=== PATIENT | female | born 1940 ===

== ENCOUNTER 2024-11-15 03:16 | Inpatient (IN) | payer OTHER, SELFPAY ==
[2024-11-14 21:27] VITALS: BP 108/72
[2024-11-14 21:59] LABS: % Basophils 0.2 % (0-2); % Eosinophils 0.4 % (0-6); % Immature Granulocytes 0.4 % (0-0.5); % Lymphocytes 9.5 % (20.5-51.1); % Monocytes 9.8 % (1.7-9.3); % Neutrophils 79.7 % (42.2-75.2); Absolute Lymphocytes 0.9 10^3/uL (1.2-3.4); Absolute Monocytes 0.9 10^3/uL (0.1-0.6); Absolute Neutrophils 7.1 10^3/uL (1.4-6.5); Hematocrit 36.8 % (37.0-47.0); Hemoglobin 12.1 g/dL (12.0-16.0); Mean Corp Hgb Conc. 32.9 g/dL (33.0-37.0); Mean Corpuscular Hgb 28.9 pg (27.0-31.0); Mean Corpuscular Volume 87.8 fL (81.0-99.0); Mean Platelet Volume 9.8 fL (7.4-10.4); Nucleated Red Blood Cells % 0 %; Platelet Count 192 10^3/uL (130-400); Red Blood Cell Count 4.19 10^6/uL (4.20-5.40); Red Cell Dist. Width 12.7 % (11.5-14.5)
[2024-11-14 22:18] LABS: ALT (SGPT) 13 U/L (0-35); AST (SGOT) 48 U/L (14-36); Albumin 4.2 g/dl (3.5-5.0); Alkaline Phosphatase 268 U/L (38-126); Blood Urea Nitrogen 25 mg/dl (7-17); Calcium 9.5 mg/dl (8.4-10.2); Carbon Dioxide 24 mmol/L (22-30); Chloride 94 mmol/L (98-107); Glucose 110 mg/dl (70-99); Potassium 4.4 mmol/L (3.5-5.1); Sodium 128 mmol/L (135-145); Total Bilirubin 1.6 mg/dl (0.2-1.3); eGFR 50.17
--- NOTE | 2024-11-14 23:06 | ED.GENMED ---
History of Present Illness
General
Chief Complaint: Urinary Symptoms
Source: patient and family
Exam Limitations: none
Time Seen by Provider: 11/14/24 22:45
Nursing documentation reviewed up to this point in time: agreed with
History of Present Illness
History of Present Illness:
84-year-old female presents emergency department due to confusion and hallucinations. Daughter states she was talking and not making sense. She has a history of low sodium. She also is a history of urinary tract infections.
Past History
Past History
ED Past Medical History: Other (Melanoma, chronic arthritis)
ED Past Surgical History: Cholecystectomy and Other (Hernia repair, toe amputation)
Social History
Tobacco: Non-smoker
Alcohol: None
Drug: None
Review of Systems
Review of Systems
Allergies reviewed?: Yes
All Other Systems: Not applicable
Constitutional: Reports no symptoms
EENT: Reports no symptoms
Respiratory: Reports no symptoms
Cardiac: Reports no symptoms
ABD/GI: Reports no symptoms
: Reports no symptoms
Musculoskeletal: Reports no symptoms
Skin: Reports no symptoms
Neurological: Reports other (Confusion, hallucinations)
Endocrine: Reports no symptoms
Hematologic/Lymphatic: Reports no symptoms
Psychiatric: Reports no symptoms
Phy Exam
Physical Exam
Physical Exam:
Physical Exam
General: Afebrile
Neck: supple. no meningeal signs. normal posterior pharynx
Heart: s1/s2 regular rate and rhythm, no murmur. equal radial
pulses.
HEENT: Pupils equal round reactive to light, EOMI
Lungs: no acute respiratory distress. clear bilaterally
Abdomen: normal bowel sounds. not tender. no CVAT, palpable mass left groin
Neuro: alert and oriented. no focal neurological deficits cranial nerves II through XII intact
Skin: no rash, left posterior skull mass
Psychiatric: well kept. interactive and cooperative
Extremities: no edema. no calf tenderness. negative homans. good distal pulses
Course
Orders/Labs/Results
Orders:
Orders
11/14/24 21:41
Complete Blood Count/With Diff Urgent
Comprehensive Metabolic Panel Urgent
11/14/24 22:57
Straight cath- Treatment ONCE
11/14/24 23:19
Osmolality, Random Urine Urgent
Date Specimen was Collected: 11/14/24
Time Specimen was Collected: 23:01
Urine Culture Reflexed from UA [Urinalysis Reflex To Culture] Urgent
Date Specimen was Collected: 11/14/24
Time Specimen was Collected: 21:30
Urine Microscopic Reflex Cult Urgent
Urine Sodium Urgent
Date Specimen was Collected: 11/14/24
Time Specimen was Collected: 23:01
11/14/24 23:30
Oxycodone [Roxicodone] 5 mg PO NOW STA
11/14/24 23:51
Electrocardiogram (*1) Urgent
EKG- Treatment ONCE
11/15/24 00:00
CT Abd/pelvis W Iv Cont Urgent
Reason For Exam: left groin swelling
CT Head W/o Iv Contrast Urgent
Reason For Exam: hallucinations, confusion
Abnormal Lab Results
11/14/24 11/14/24
21:41 23:19
RBC 4.19 L 10^6/uL
(4.20-5.40)
Hct 36.8 L %
(37.0-47.0)
MCHC 32.9 L g/dL
(33.0-37.0)
Absolute Neuts (auto) 7.1 H 10^3/uL
(1.4-6.5)
Absolute Lymphs (auto) 0.9 L 10^3/uL
(1.2-3.4)
Absolute Monos (auto) 0.9 H 10^3/uL
(0.1-0.6)
Neutrophils % 79.7 H %
(42.2-75.2)
Lymphocytes % 9.5 L %
(20.5-51.1)
Monocytes % 9.8 H %
(1.7-9.3)
Sodium 128 L mmol/L
(135-145)
Chloride 94 L mmol/L
(98-107)
BUN 25 H mg/dl
(7-17)
Creatinine 1.1 H mg/dL
(0.6-1.0)
Glucose 110 H mg/dl
(70-99)
Total Bilirubin 1.6 H mg/dl
(0.2-1.3)
AST 48 H U/L
(14-36)
Alkaline Phosphatase 268 H U/L
(38-126)
Ur Occult Blood Reflex 2+ A
(Negative)
Urine RBC 3-6 A /HPF
(0-2)
Urine Albumin (Reflex) 3+ A
(Neg - Trace)
11/14/24 21:41
11/14/24 21:41
Vital Signs
Initial and Last Documented VS:
Initial Vital Signs
Temp Pulse Resp BP Pulse Ox
98.4 F 68 20 108/72 94
11/14/24 21:27 11/14/24 21:27 11/14/24 21:27 11/14/24 21:27 11/14/24 21:27
Last Documented Vital Signs
Temp Pulse Resp BP Pulse Ox
98.8 F 68 21 144/78 94
11/14/24 23:46 11/14/24 23:46 11/14/24 23:46 11/14/24 23:46 11/14/24 23:46
MDM/Problems Addressed
Differential Diagnosis Includes:
UTI, melanoma metastasis
MDM/Problems Addressed:
84-year-old female with hyponatremia, metastatic melanoma. Pleural effusion.
Chronic conditions affecting care: Cancer (Melanoma)
Acute Exacerbation and/or Progression of Chronic Illness: Cancer (Melanoma)
*Radiology
Radiology exam reviewed: radiology read reviewed (CT head shows left metastatic mass eating through the skull, CT abdomen pelvis shows metastasis to liver, pleural effusions)
*Pulse Oximetry
Patient hypoxic: no
*Reducing Machine Operator Interpretation
Rate: normal
Interpretation: normal
Heart Rate: 70
Rhythm: sinus
*Critical Care Note
Total Time (30-74mins, 75-104mins- exclusive of procedures): Not Applicable
Data Reviewed
Review of Other/Old Records Reveals: Labs
Source: records (Prior sodium 132 on 08/17/2021)
Patient Management
Social determinants of health affecting care: Living situation and Strong social support
Discussion with other providers: Hospitalist
Escalation/DeEscalation of care consider admission/obs:
Admit indicated
ED Attending Note
-
Portions of this chart may have been created with voice recognition software.� Occasional wrong word or��sound alike� substitutions may have occurred due to the inherent limitations of voice recognition software.
Discharge Plan
Departure
Patient Disposition: Admit
Date of Disposition: 11/15/24
Time of Disposition: 01:42
Admit to: Telemetry
Presentation/result/management discussed w/ accepting MD/DO: Hospitalist
Patient with high blood pressure during this ER visit?: Yes
Condition: Fair
Discharge Problem:
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
Prescriptions:
No Action
methocarbamol 500 mg Tablet
500 mg PO TID PRN (Reason: muscle pains)
gabapentin 600 mg Tablet
600 mg PO TID
atenolol 100 mg Tablet
100 mg PO DAILY
ondansetron HCl [Zofran] 8 mg Tablet
8 mg PO Q8H PRN (Reason: nausea)
omeprazole 40 mg Capsule,Delayed Release(Dr/Ec)
40 mg PO DAILY
amlodipine 10 mg Tablet
10 mg PO DAILY
timolol 0.25 % Drops
1 drp OPHTHALMIC (EYE) BID
Rx Instructions:
Both eyes
fentanyl 25 mcg/hr Patch 72 Hour
25 mcg topical Q3D
oxycodone 5 mg Tablet
5 mg PO Q6H PRN (Reason: pain)
prednisone 10 mg Tablet
10 mg PO DAILY PRN (Reason: breakthrough pain for gout)
ergocalciferol (vitamin D2) 1,000 unit Capsule
50,000 unit PO WEEKLY
Referrals:
PAULETTE ALMANZAR [Other]
Interventions
Interventions:
*Risk Screen - Suicide Last Done: 11/14/24 23:20
*General Assessment Last Done: 11/14/24 21:27
*Neglect/Abuse Screening Last Done: 11/14/24 23:20
*ED- Fall Risk Assessment Last Done: 11/14/24 23:20
*ED COVID-19 Vaccine History Last Done: 11/14/24 23:20
ED-Female Genitourinary Assessment Last Done: 11/14/24 23:21
Discharge Date and Time
Print Language: PERSIAN
[2024-11-14 23:21] VITALS: BMI 34.5
[2024-11-14] MEDS: ROXICODONE 5 MG PO (23:33)
[2024-11-14 23:46] VITALS: BP 144/78
[2024-11-14 23:50] LABS: Urine Albumin 3+ (Neg - Trace); Urine Bilirubin Negative (Negative); Urine Character Clear (Clear); Urine Color Yellow; Urine Glucose Negative (Negative); Urine Ketone Negative (Negative); Urine Leukocyte Negative (Negative); Urine Nitrite Negative (Negative); Urine Occult Blood 2+ (Negative); Urine Specific Gravity 1.015 (<1.030); Urine Urobilinogen 1+ (Neg - 1+)
[2024-11-15] VITALS (8 sets, daily range): BP systolic 105–161; BP diastolic 51–66; BMI 33.1
[2024-11-15 00:03] LABS: Urine White Cell 0-2 /HPF (0-5)
[2024-11-15 00:12] LABS: Urine Sodium 38 mmol/L (30-90)
[2024-11-15 00:42] LABS: Osmolality Urine 467 mOsm/kg (300-900)
--- NOTE | 2024-11-15 02:40 | HPS.HSE ---
Family Physician
-
Family Physician: PAULETTE ALMANZAR
Chief Complaint
-
Delirium
History of Present Illness
This is a 84-year-old female with past medical history of metastatic melanoma status post resection 3 years ago, hypertension, gout, GERD who presents from home for episode of confusion.
Daughter brought patient because she stated that for about 1 day the patient has been more confused. Patient herself noted that she was 'acting goofy'. Daughter brought her in for concern of possible UTI. Patient himself denies urinary tract
symptoms including dysuria, frequency urgency or incontinence. She reports that in the past she has been diagnosed with hyponatremia in the setting of confusions and hallucinations and nighttime had a low sodium of 122. She denies any urinary
changes.
Patient denies of any fevers or chills. She denies any abdominal pain nausea or vomiting. She reported that she had a bump in her head for some time now on the left parietal side but does not disclose this to her daughter. She also reports some
mild increasing arthritis pain.
By the time I saw the patient in the emergency department she was alert and oriented x 3 answering current questions appropriately.
In the emergency department she was afebrile, blood pressure was 144/78 with a pulse of 68 satting 94% on room air. UA was negative. CBC was unremarkable. Electrolytes notable for a sodium of 128 but otherwise unremarkable. BUN/creatinine with
normal glucose normal. A CT of the head shows no acute intracranial hemorrhage herniation or hydrocephalus. 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 Skull metastasis erosion through the full-thickness of the inner and outer table of the
skull with mild mass effect on the underlying parietal lobe and posterior frontal lobe.
CT abdomen pelvis with numerous metastasis in the liver with largest measuring 7 cm in the left lobe, 3 cm nodule in the left adrenal gland, 6.4 cm left inguinal mass consistent with mets additional mets noted in the left pubic ramus and head with
multiple sarmad metastases along the left iliac chain.
Medical History
Past Medical History
Past Medical History: Reports Cancer (melanoma), GERD and HTN
Past Surgical History: Reports Appendectomy and Cholecystectomy
Social History
Tobacco: Former Smoker
Alcohol: None
Drug: None
Personal: Single
Living: With Family
Employment: Not Employed
Family History
Family History: Not pertinent
Allergies / Home Medications
Allergies reflects when Allergies were last updated in [facility].
Home Medications with original date entered in [facility]
Allergy/Medication List:
Allergies
Allergy/AdvReac Type Severity Reaction Status Date / Time
No Known Allergies Allergy Verified 11/14/24 23:21
Home Medications
amlodipine 10 mg tablet 10 mg PO DAILY 11/14/24
atenolol 100 mg tablet 100 mg PO DAILY 11/14/24
ergocalciferol (vitamin D2) 1,000 unit capsule 50,000 unit PO WEEKLY 11/14/24
fentanyl 25 mcg/hr transdermal patch 25 mcg topical Q3D 11/14/24
gabapentin 600 mg tablet 600 mg PO TID 11/14/24
methocarbamol 500 mg tablet 500 mg PO TID PRN muscle pains 11/14/24
omeprazole 40 mg capsule,delayed release 40 mg PO DAILY 11/14/24
ondansetron HCl 8 mg tablet 8 mg PO Q8H PRN nausea 11/14/24
oxycodone 5 mg tablet 5 mg PO Q6H PRN pain 11/14/24
prednisone 10 mg tablet 10 mg PO DAILY PRN breakthrough pain for gout 11/14/24
timolol 0.25 % eye drops 1 drp ophthalmic (eye) BID 11/14/24
Review of Systems
-
History Source: Patient and Family
Constitutional: Reports No Symptoms
EENT: Reports No Symptoms
Respiratory: Reports No Symptoms
Cardiac: Reports No Symptoms
Abdomen/GI: Reports No Symptoms
: Reports No Symptoms
Musculoskeletal: Reports No Symptoms
Skin: Reports No Symptoms
Neurological: Reports No Symptoms
Endocrine: Reports No Symptoms
Hematologic/Lymphatic: Reports No Symptoms
Psych: Reports No Symptoms
Physical Exam
Vital Signs
Vital Signs
Temp Pulse Resp BP Pulse Ox
98.8 F 73 20 144/78 95
11/14/24 23:46 11/15/24 02:15 11/15/24 02:15 11/14/24 23:46 11/15/24 00:05
Physical Exam
General: Well Developed, Well Nourished, No Apparent Distress, Comfortable and Conversant
HEENT: Anicteric, Moist mucous membranes, PERRLA and Other (4 cm nodular mass on the left parietal side of the head)
Respiratory: Clear
Cardiac: S1/S2 and Regular Rhythm
Breast: Deferred by me
GI: Soft, Non Tender, Non Distended and Normal Bowel Sounds
Rectal: Deferred by Provider
Genito-urinary: Clear Urine
Musculoskeletal: No Clubbing, No Cyanosis and No Edema
Skin: Warm
Neuro: AO x 3 and Nonfocal/grossly intact
Hematologic/Lymphatic: No Lymphadenopathy
Psych: Calm
Laboratory Results
-
11/14/24 21:41
11/14/24 21:41
Laboratory Results
Total Bilirubin 1.6 mg/dl (0.2-1.3) H 11/14/24 21:41
AST 48 U/L (14-36) H 11/14/24 21:41
ALT 13 U/L (0-35) 11/14/24 21:41
Alkaline Phosphatase 268 U/L (38-126) H 11/14/24 21:41
Data Reviewed
-
CT Scan: Report Reviewed by me
Lab Data: Labs Reviewed by me
Old Records: Reviewed
Impression/Plan
-
IMPRESSION:
This is a 84-year-old with history of metastatic melanoma. She was diagnosed in 2021. 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 She was treated with adjuvant immunotherapy. After 2 sessions of the immunotherapy she was not
tolerating it and she decided to discontinue. She did not continue to follow-up with routine scans since she was not going to entertain taking chemotherapy or immunotherapy. She started noticing a bump on the left side of her head several weeks
ago. She thought it was a cyst but she was also was concerned that it could be metastatic disease. Today she was going to the emergency department for episode of confusion which appears to have resolved. Patient is currently alert oriented and in
no acute distress. This is consistent with acute delirium. Imaging shows widely metastatic disease with a large brain met as well as multiple mets in the liver and the pelvic bones. She has mild abnormalities in her LFTs with total bilirubin of
1.6 alk phos of 268. She has no pruritus. No signs of acute infection.
PLAN:
1. Delirium - confusion resolved. No acute infection. Na 128 an dunlikely the etiology. Possibly related to skull mets with erosion through the full-thickness of the inner and outer table of the skull with mild mass effect on the underlying
parietal lobe and posterior frontal lobe.
- admit to med/surg
- oncology consultation
- mri brain
- dexamethasone 4mg daily to start
2. 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 Urine Osm 460. She is euvolemic.
- fluid restriction to 50 oz daily
- consider reducing gabapentin but patient likely needs for pain
3. Metastatic melanoma - Patient suspected this eventuality from the nodule on head. Mets to skull/brain, liver and hip bones. Willing to entertain palliative/therapeutic options
- dexamethasone as above
- metastatic liver with mild cholestatic pattern. She reports some nausea and some reduced po. Symptomatic treatment for now. Do ductal obstruction noted
- trend lfts
- consider GI consult
DVT PPX - lovenox sq
code status - DNR
[2024-11-15] MEDS: ROXICODONE 5 MG PO ×2 (05:49→20:59)
--- NOTE | 2024-11-15 07:31 | PTCARENOTE ---
Pt admitted from ED with daughter at bedside. AAOx3. Pt afebrile. VSS. Pure wick removed upon arrival to unit. Pt oriented to room. Call newman within reach and bed in lowest position. Bed alarm in place.
[2024-11-15 07:53] LABS: Hematocrit 32.4 % (37.0-47.0); Hemoglobin 10.8 g/dL (12.0-16.0); Mean Corp Hgb Conc. 33.3 g/dL (33.0-37.0); Mean Corpuscular Hgb 29.3 pg (27.0-31.0); Mean Platelet Volume 9.8 fL (7.4-10.4); Platelet Count 143 10^3/uL (130-400); Red Blood Cell Count 3.68 10^6/uL (4.20-5.40); Red Cell Dist. Width 12.6 % (11.5-14.5); White Blood Cell Count 7.5 10^3/uL (4.8-10.8)
[2024-11-15 08:22] LABS: ALT (SGPT) 10 U/L (0-35); AST (SGOT) 38 U/L (14-36); Albumin 3.1 g/dl (3.5-5.0); Alkaline Phosphatase 223 U/L (38-126); Blood Urea Nitrogen 21 mg/dl (7-17); Calcium 9.1 mg/dl (8.4-10.2); Carbon Dioxide 27 mmol/L (22-30); Chloride 96 mmol/L (98-107); Direct Bilirubin 0.7 mg/dl (0.0-0.4); Estimated Creatinine Clearance 48 ml/min; Glucose 95 mg/dl (70-99); Potassium 3.9 mmol/L (3.5-5.1); Sodium 130 mmol/L (135-145); Total Bilirubin 1.5 mg/dl (0.2-1.3); Total Protein 5.9 g/dl (6.3-8.2); eGFR 56.25
[2024-11-15 08:51] LABS: TSH 0.57 uIU/ml (0.47-4.68)
[2024-11-15 09:10] LABS: Vitamin B12 280 pg/ml (239-931)
[2024-11-15] MEDS: NEURONTIN 300 MG PO ×3 (09:17→20:59)
[2024-11-15] MEDS: DECADRON 4 MG PO (09:17)
[2024-11-15] MEDS: NORVASC 10 MG PO (09:18)
[2024-11-15] MEDS: TENORMIN 100 MG PO (09:18)
[2024-11-15] MEDS: PROTONIX 40 MG PO (09:18)
[2024-11-15] MEDS: TIMOPTIC 0.25% OPHTHALMIC SOLUTION 1 DROP BOTH EYES ×2 (09:25→20:58)
--- NOTE | 2024-11-15 10:35 | W.CON.NEPH ---
Consultation
-
Date/Time Consultation Requested: 11/15/2024 10 AM
Date/Time Consultation Performed: 11/15/2024 10 AM
Requesting Provider: Dr. Lin
Performing Provider: Dr. Castillo
Reason for Consultation: Hyponatremia
Medical History
-
Chief Complaint: Confusion
History of Present Illness:
This is a 84-year-old female with metastatic melanoma status post resection 3 years ago, hypertension, gout, GERD who presents from home for episode of confusion.
Daughter brought patient because she stated that for about 1 day the patient has been more confused. Patient recalls being confused. Daughter brought her in for concern of possible UTI. Recently the patient did have a similar episode and was
treated for a urinary tract infection which seemed to have helped. However the symptoms did return and she was given another course of antibiotics without urine testing.
Patient denies of any fevers or chills. She denies any abdominal pain nausea or vomiting. She reported that she had a bump in her head for some time now on the left parietal side but does not disclose this to her daughter. She also reports some
mild increasing arthritis pain.
Sodium level in the emergency room was noted to be low at 128
Patient reports drinking somewhere between 64 and 72 ounces of fluid per day. Recently she has had more nausea and has been eating somewhat less.
Past Medical History
Metastatic melanoma
Hypertension
Reflux
Appendectomy
Cholecystectomy
Social History
Tobacco: Former Smoker
Alcohol: None
Family History
Family History: Not Pertinent
Allergies / Home Medications
Allergy/AdvReac Type Severity Reaction Status Date / Time
No Known Allergies Allergy Verified 11/14/24 23:21
�Medication �Instructions �Recorded �Confirmed �Type
amlodipine 10 mg tablet 10 mg PO DAILY 11/14/24 11/14/24 History
atenolol 100 mg tablet 100 mg PO DAILY 11/14/24 11/14/24 History
ergocalciferol (vitamin D2) 1,000 50,000 unit PO WEEKLY 11/14/24 11/14/24 History
unit capsule
fentanyl 25 mcg/hr transdermal 25 mcg topical Q3D 11/14/24 11/15/24 History
patch
gabapentin 600 mg tablet 600 mg PO TID 11/14/24 11/14/24 History
methocarbamol 500 mg tablet 500 mg PO TID PRN muscle pains 11/14/24 11/14/24 History
omeprazole 40 mg capsule,delayed 40 mg PO DAILY 11/14/24 11/14/24 History
release
ondansetron HCl 8 mg tablet 8 mg PO Q8H PRN nausea 11/14/24 11/14/24 History
oxycodone 5 mg tablet 5 mg PO Q6H PRN pain 11/14/24 11/14/24 History
prednisone 10 mg tablet 10 mg PO DAILY PRN breakthrough 11/14/24 11/14/24 History
pain for gout
timolol 0.25 % eye drops 1 drp ophthalmic (eye) BID 11/14/24 11/14/24 History
Review of Systems
-
No chest pain or shortness of breath
Does not feel confused
Some difficulty with urination in bed when she is not on the commode
All other systems: Negative unless noted
Physical Exam
Vital Signs
Vital Signs
Temp Pulse Resp BP Pulse Ox
99 F 71 22 126/54 93
11/15/24 07:50 11/15/24 07:50 11/15/24 07:50 11/15/24 07:50 11/15/24 07:50
Lab Results
WBC 7.5 10^3/uL (4.8-10.8) 11/15/24 07:13
RBC 3.68 10^6/uL (4.20-5.40) L 11/15/24 07:13
Hgb 10.8 g/dL (12.0-16.0) L 11/15/24 07:13
Hct 32.4 % (37.0-47.0) L 11/15/24 07:13
Plt Count 143 10^3/uL (130-400) D 11/15/24 07:13
Sodium 130 mmol/L (135-145) L 11/15/24 07:13
Potassium 3.9 mmol/L (3.5-5.1) 11/15/24 07:13
Chloride 96 mmol/L (98-107) L 11/15/24 07:13
Carbon Dioxide 27 mmol/L (22-30) 11/15/24 07:13
BUN 21 mg/dl (7-17) H 11/15/24 07:13
Creatinine 1.0 mg/dL (0.6-1.0) 11/15/24 07:13
eGFR 56.25 11/15/24 07:13
Glucose 95 mg/dl (70-99) 11/15/24 07:13
Calcium 9.1 mg/dl (8.4-10.2) 11/15/24 07:13
Albumin 3.1 g/dl (3.5-5.0) L 11/15/24 07:13
Laboratory Tests
11/14/24 11/15/24
23:19 07:13
AST 38 H
Ur Occult Blood Reflex 2+ A
Urine Osmolality 467
Urine Sodium 38
Urine Albumin (Reflex) 3+ A
CT head 11/15/2024
IMPRESSION:
Left parietal calvarial mass/metastasis, as described.
No acute intracranial abnormality noted.
CT abdomen pelvis 11/15/2024
IMPRESSION:
Metastatic disease involving the liver, adrenal glands, left pelvic and inguinal lymph nodes, retroperitoneal lymph nodes, and osseous metastatic lesions.
Small right pleural effusion.
Physical Exam
Patient is awake alert oriented and in no distress. Mood and affect were pleasant, insight and judgment were good. Pupils are equal round and reactive to light, extraocular movements are intact, sclera were anicteric. Hearing was normal, ears and
nose are intact. Oropharynx was clear. Neck was supple with trachea midline and no thyromegaly. Heart was regular rate and rhythm without rubs. Lower extremities with 1+ edema. Lungs were clear to auscultation bilaterally and with normal
excursion. Abdomen was soft, nontender, with normal active bowel sounds, and no hepatosplenomegaly. Skin was without rash and with normal turgor.
Data Reviewed
-
CT Scan: Report Reviewed by me
Medical Tests (Nuc Med, Echo etc): Image Personally Visualized and interpreted (EKG 11/14/2024 by my reading shows normal sinus rhythm)
Labs: Labs Reviewed by me
Old Records: Reviewed
Assessment/Plan
-
Assessment
Metastatic melanoma
Mental status change
Hyponatremia
Reflux
Hypertension
Plan
She has excess ADH state, likely on the basis of nausea with metastatic melanoma
Tolvaptan 7.5 mg a day
Fluid restriction 40 ounces per day
Follow BMP
Discussed with patient and daughter
She may benefit from low-dose Lasix with or without salt as an outpatient.
[2024-11-15] MEDS: SAMSCA 7.5 MG PO (11:26)
--- NOTE | 2024-11-15 11:53 | CON.ONC ---
Impression
Impression
h/o node positive left great toe melanoma, ~2022, s/p amputation, left groin node sampling, and a couple doses of adjuvant Keytruda, which was tolerated poorly
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
Plan
Plan
We discussed goals of care - 'I just want to be comfortable'
She's reluctant to consider systemic therapy w/ immunotherapy due to prior side effects of Keytruda
Will consult hospice
Could consider cancelling brain MRI
Would stop Dexamethasone
I also provided my office contact information in case she changes her mind and wants to reconsider treatment options
Will sign off.
Patient History
History of Present Illness
This is an 84yo F w/ h/o right great toe melanoma, s/p amputation (Dr. Desouza, [facility]) in 2022, with groin LN sampling ('a little bit postiive' per family), and a couple doses of adjuvant Keytruda (Dr. Moulton, [facility]), which was poorly tolerated
(nausea, joint pain). She didn't f/u for routine surveillance at [facility] because she didn't want any further treatment.
She was brought to ER yesterday by her daughter with mild confusion, which she had in the past in the setting of UTI and low sodium.
Labs at admission showed Na+ of 128. UA without signs of UTI.
Exam noted for left groin mass and left skull mass, imaging revealed metastatic disease to liver, adrenals, bones, LN of left groin and pelvis.
Past-Medical/Surgical History
Past Medical History
Past Medical History: Reports Cancer (melanoma), GERD and HTN
Past Surgical History: Reports Appendectomy and Cholecystectomy
Social History
Tobacco: Former Smoker
Alcohol: None
Drug: None
Personal: Single
Living: With Family
Employment: Not Employed
Family History
Family History: Not pertinent
Patient Medication
�Medication �Instructions �Recorded �Confirmed �Last Taken �Type
amlodipine 10 mg tablet 10 mg PO DAILY 11/14/24 11/14/24 11/14/24 History
atenolol 100 mg tablet 100 mg PO DAILY 11/14/24 11/14/24 11/14/24 History
ergocalciferol (vitamin D2) 1,000 50,000 unit PO WEEKLY 11/14/24 11/14/24 Unknown History
unit capsule
fentanyl 25 mcg/hr transdermal 25 mcg topical Q3D 11/14/24 11/15/24 Unknown History
patch
gabapentin 600 mg tablet 600 mg PO TID 11/14/24 11/14/24 11/14/24 History
methocarbamol 500 mg tablet 500 mg PO TID PRN muscle pains 11/14/24 11/14/24 Unknown History
omeprazole 40 mg capsule,delayed 40 mg PO DAILY 11/14/24 11/14/24 11/14/24 History
release
ondansetron HCl 8 mg tablet 8 mg PO Q8H PRN nausea 11/14/24 11/14/24 Unknown History
oxycodone 5 mg tablet 5 mg PO Q6H PRN pain 11/14/24 11/14/24 11/14/24 History
prednisone 10 mg tablet 10 mg PO DAILY PRN breakthrough 11/14/24 11/14/24 Unknown History
pain for gout
timolol 0.25 % eye drops 1 drp ophthalmic (eye) BID 11/14/24 11/14/24 11/14/24 History
Active Medications
Generic Name Dose Route Start Last Admin
Trade Name Freq PRN Reason Stop Dose Admin
Acetaminophen 650 mg 11/15/24 05:19
Acetaminophen 325 Mg Tablet PO 12/13/24 05:18
Q4HPRN PRN
mild pain/BRICE/temp> 100.4F
Amlodipine Besylate 10 mg 11/15/24 08:00 11/15/24 09:18
Amlodipine 10 Mg Tablet PO 12/13/24 07:59 10 mg
DAILY ROSA Administration
Atenolol 100 mg 11/15/24 08:00 11/15/24 09:18
Atenolol 50 Mg Tablet PO 12/13/24 07:59 100 mg
DAILY ROSA Administration
Bisacodyl 10 mg 11/15/24 05:19
Bisacodyl 10 Mg Rectal Suppository RECTAL 12/13/24 05:18
[id number] PRN
constipation
Dexamethasone 4 mg 11/15/24 08:00 11/15/24 09:17
Dexamethasone 4 Mg Tablet PO 12/13/24 07:59 4 mg
DAILY ROSA Administration
Enoxaparin Sodium 40 mg 11/15/24 18:00
Enoxaparin Sodium 40 Mg/0.4 Ml Syringe SC 12/13/24 17:59
QPM ROSA
Gabapentin 300 mg 11/15/24 08:00 11/15/24 09:17
Gabapentin 300 Mg Capsule PO 12/13/24 07:59 300 mg
TID ROSA Administration
Hydromorphone HCl 0.5 mg 11/15/24 05:19
Hydromorphone 0.5 Mg/0.5 Ml Syringe IV 11/29/24 05:18
Q4HPRN PRN
severe pain
Ondansetron HCl 4 mg 11/15/24 05:19
Ondansetron 4 Mg/2 Ml Vial IV 12/13/24 05:18
Q6HPRN PRN
nausea and vomiting
Oxycodone HCl 5 mg 11/15/24 05:19 11/15/24 05:49
Oxycodone 5 Mg Regular Release Tablet PO 11/29/24 05:18 5 mg
Q4HPRN PRN Administration
moderate pain
Pantoprazole Sodium 40 mg 11/15/24 08:00 11/15/24 09:18
Pantoprazole 40 Mg Delayed Release Tablet PO 12/13/24 07:59 40 mg
DAILY ROSA Administration
Polyethylene Glycol 17 grams 11/15/24 05:19
Polyethylene Glycol Powder 17 Grams Packet PO 12/13/24 05:18
DAILYPRN PRN
constipation
Senna/Docusate Sodium 1 tablet 11/15/24 05:19
Docusate W/Senna (Chantel-Colace) Tablet PO 12/13/24 05:18
BIDPRN PRN
constipation
Sodium Chloride 0 flush 11/15/24 06:00
Sodium Chloride 0.9% (Flush) Syringe IV 12/13/24 05:59
PER PROTOCOL ROSA
Timolol Maleate 1 drop 11/15/24 08:00 11/15/24 09:25
Timolol 0.25% (Ophthalmic Solution) Bottle BOTH EYES 12/13/24 07:59 1 drop
BID ROSA Administration
Review of Systems
-
History Source: Patient and Family
All Other Systems: Not reviewed unless documented
Constitutional: Denies Weight Loss
EENT: Reports Decreased Vision
Respiratory: Denies Trouble Breathing
GI: Reports Nausea; Denies Vomiting or Diarrhea
Musculoskeletal: Reports Joint Pain
Physical Exam
-
General: Well Developed, Well Nourished, No Apparent Distress, Comfortable and Conversant
HEENT: Moist Mucous Membranes and Other (left skull mass); Negative Jaundice
Cardiology: Normal Sinus Rhythm
Pulmonary: Clear
GI: Soft
Musculoskeletal: No Clubbing, No Cyanosis and No Edema
Hematologic / Lymphatic: Lymphadenopathy (left inguinal mass)
Psych: Calm and Intact Judgement/Insight; Negative Confused
Labs
Lab Results
WBC 7.5 10^3/uL (4.8-10.8) 11/15/24 07:13
RBC 3.68 10^6/uL (4.20-5.40) L 11/15/24 07:13
Hgb 10.8 g/dL (12.0-16.0) L 11/15/24 07:13
Hct 32.4 % (37.0-47.0) L 11/15/24 07:13
MCV 88.0 fL (81.0-99.0) 11/15/24 07:13
MCH 29.3 pg (27.0-31.0) 11/15/24 07:13
MCHC 33.3 g/dL (33.0-37.0) 11/15/24 07:13
RDW 12.6 % (11.5-14.5) 11/15/24 07:13
Plt Count 143 10^3/uL (130-400) D 11/15/24 07:13
MPV 9.8 fL (7.4-10.4) 11/15/24 07:13
Abs Immat Gran (auto) 0.0 10^3/uL (0-0.05) 11/14/24 21:41
Absolute Neuts (auto) 7.1 10^3/uL (1.4-6.5) H 11/14/24 21:41
Absolute Lymphs (auto) 0.9 10^3/uL (1.2-3.4) L 11/14/24 21:41
Absolute Monos (auto) 0.9 10^3/uL (0.1-0.6) H 11/14/24 21:41
Absolute Eos (auto) 0.0 10^3/uL (0-0.7) 11/14/24 21:41
Absolute Basos (auto) 0.0 10^3/uL (0-0.2) 11/14/24 21:41
Immature Gran % 0.4 % (0-0.5) 11/14/24 21:41
Neutrophils % 79.7 % (42.2-75.2) H 11/14/24 21:41
Lymphocytes % 9.5 % (20.5-51.1) L 11/14/24 21:41
Monocytes % 9.8 % (1.7-9.3) H 11/14/24 21:41
Eosinophils % 0.4 % (0-6) 11/14/24 21:41
Basophils % 0.2 % (0-2) 11/14/24 21:41
Creatinine 1.0 mg/dL (0.6-1.0) 11/15/24 07:13
Vital Signs
Vital Signs
Temp Pulse Resp BP Pulse Ox
99 F 71 22 126/54 93
11/15/24 07:50 11/15/24 07:50 11/15/24 07:50 11/15/24 07:50 11/15/24 07:50
--- NOTE | 2024-11-15 12:18 | CON.GI ---
Consultation
-
Date/Time Consultation Requested: 11/15/2024
Date/Time Consultation Performed: 11/15/2024
Performing Provider: Jelani Morrell
Reason for Consultation: elevated LFT
Medical History
Chief Complaint / HPI
Chief Complaint: elevated LFT, hepatic metastasis
History of Present Illness:
84 year old female with h/o metastatic melanoma who p/w confusion, which resolved spontaneously. During evaluation she was noted to have elevation in LFT. She has known metastatic melanoma with mets to liver, adrenals, and bone. She denies
abdominal pain. No h/o jaundice.
Past Medical History
Past Medical History: GERD, HTN and Other
Past Surgical History: Appendectomy, Cholecystectomy and Other
Social History
Tobacco: Former Smoker
Alcohol: None
Family History
Family History: Reviewed & Not Pertinent
Allergies / Home Medications
Allergy/AdvReac Type Severity Reaction Status Date / Time
No Known Allergies Allergy Verified 11/14/24 23:21
�Medication �Instructions �Recorded
amlodipine 10 mg tablet 10 mg PO DAILY 11/14/24
atenolol 100 mg tablet 100 mg PO DAILY 11/14/24
ergocalciferol (vitamin D2) 1,000 50,000 unit PO WEEKLY 11/14/24
unit capsule
fentanyl 25 mcg/hr transdermal 25 mcg topical Q3D 11/14/24
patch
gabapentin 600 mg tablet 600 mg PO TID 11/14/24
methocarbamol 500 mg tablet 500 mg PO TID PRN muscle pains 11/14/24
omeprazole 40 mg capsule,delayed 40 mg PO DAILY 11/14/24
release
ondansetron HCl 8 mg tablet 8 mg PO Q8H PRN nausea 11/14/24
oxycodone 5 mg tablet 5 mg PO Q6H PRN pain 11/14/24
prednisone 10 mg tablet 10 mg PO DAILY PRN breakthrough 11/14/24
pain for gout
timolol 0.25 % eye drops 1 drp ophthalmic (eye) BID 11/14/24
Review of Systems
Vital Signs
Temp Pulse Resp BP Pulse Ox
99 F 71 22 126/54 93
11/15/24 07:50 11/15/24 07:50 11/15/24 07:50 11/15/24 07:50 11/15/24 07:50
Physical Exam
Exam
General: Well Developed and Well Nourished
HEENT: Normocephalic and Anicteric
Respiratory: Clear
Cardiac: S1/S2
GI: Soft, Non Tender, Non Distended and Normal Bowel Sounds
Results
WBC 7.5 10^3/uL (4.8-10.8) 11/15/24 07:13
Hgb 10.8 g/dL (12.0-16.0) L 11/15/24 07:13
Hct 32.4 % (37.0-47.0) L 11/15/24 07:13
MCV 88.0 fL (81.0-99.0) 11/15/24 07:13
Plt Count 143 10^3/uL (130-400) D 11/15/24 07:13
Absolute Neuts (auto) 7.1 10^3/uL (1.4-6.5) H 11/14/24 21:41
Sodium 130 mmol/L (135-145) L 11/15/24 07:13
Potassium 3.9 mmol/L (3.5-5.1) 11/15/24 07:13
Chloride 96 mmol/L (98-107) L 11/15/24 07:13
Carbon Dioxide 27 mmol/L (22-30) 11/15/24 07:13
BUN 21 mg/dl (7-17) H 11/15/24 07:13
Creatinine 1.0 mg/dL (0.6-1.0) 11/15/24 07:13
Calcium 9.1 mg/dl (8.4-10.2) 11/15/24 07:13
Total Bilirubin 1.5 mg/dl (0.2-1.3) H 11/15/24 07:13
AST 38 U/L (14-36) H 11/15/24 07:13
ALT 10 U/L (0-35) 11/15/24 07:13
Alkaline Phosphatase 223 U/L (38-126) H 11/15/24 07:13
Diagnostic Image Results:
Prior GI Procedures:
EGD:
Colonoscopy:
Assessment / Plan
-
84 year old female with h/o metastatic melanoma who p/w confusion, which resolved spontaneously. During evaluation she was noted to have elevation in LFT. She has known metastatic melanoma with mets to liver, adrenals, and bone.
Impression / Rec:
1. Elevated LFT - pt unfortunately has metastatic melanoma with mets to liver, adrenals, and bone. Her LFT is mildly elevated with bili of 1.5 and alk phos 223. Her CT abd w/ IV contrast was reviewed by me, which showed multiple liver mets w/o
obvious ductal dilation. Her LFT elevation is predominantly from metastatic tumor burden without biliary obstruction. She would not benefit from endoscopic procedures. No need for MRI/MRCP. Defer further care to oncology/palliative care.
Total Time Spent with Patient (in minutes): 55
-
-
Thank you for consultation and allowing me to participate in the patient's care. Please call the property consultant GI physician during the after hours with any questions or concerns.
--- NOTE | 2024-11-15 12:36 | CM ---
Alert awake oriented patient who lives at [facility] [place]. She is independent in activates of daily living.She uses a walker .SPoke with Casey Clark they requested Hospice information from Hospice , Spoke with Amy De Leon on
call regarding referral . Referral in care port .
Had VN in past . [facility] [place] Beat[place] Y[place]
PLAN Will depend on hospital stay and Hospice referral outcome
--- NOTE | 2024-11-15 13:55 | HOSPNOTE ---
Visited patient to discuss hospice at home with patient and daughter. Explained services and benefits. Daughter is wondering about getting an MRI before leaving the hospital to confirm if tumors in head and groin area are operable or not. Patieint
is willing to entertain the idea of surgery but not chemo or radiation. Patient is thinking about wether she wants to have an MRI as her arthritis pain would make the MRI challenging. Daughter Peri is supportive of mom and hospice, patient
seems very interested in hospice care.
Follow up tomorrow to give patient time to decide if she wants an MRI.
--- NOTE | 2024-11-15 15:05 | W.PN.HOSP.TC ---
Addendum entered and electronically signed by Renée Lucas MD 11/15/24 15:07:
Status post 1 dose of Samsca 7.5 mg
Original Note:
Today's Communication/Plan
-
Hospice consultation
Cancel MRI for patient and daughter decide not to get it and Opts Hospice.
Assessment / Plan
Assessment / Plan
84-year-old female with history of metastatic melanoma with resection 3 years ago admitted because of Delirium
11/15/2024-CT abdomen and pelvis with IVC--metastatic disease in the liver, adrenal glands, left pelvic and inguinal lymph nodes, retroperitoneal lymph nodes and osseous metastatic disease. Small pleural effusion
11/15/2024-Head CT-left parietal calvarial mass/metastasis 3 into 2.5 cm full-thickness bony destruction. Inner margin of the lesion results in secondary to extrinsic compression of the superficial margin of the left parietal lobe/posterior frontal
lobe cortex. No midline shift
CVS: S1-S2 normal
Chest: Few scattered wheezes
Abdomen: Soft, NT / Bowel sounds present
Extremities: No edema palpable
[employer]: Mass on the left parietal area
# Delirium
Possibly secondary metastasis to brain.
Patient is back to baseline as per daughter
Unlikely sodium of 128-sodium improved to 130
Skull mets with erosion through the full-thickness of the inner and outer table of the skull with mild mass effect on the underlying parietal lobe and posterior frontal lobe
Oncology consulted
MRI of the brain ordered-I discussed with the patient and daughter whether they want to get it or not they are going to make a decision. If no interventions planned there is no reason to get an MRI.
Dexamethasone started
# Hyponatremia
Likely SIADH
Fluid restriction ordered
# Acute kidney injury improved
# Abnormal LFTs-likely secondary to metastasis and also alkaline phosphatase could be bone related
# Hypertension on atenolol 100 mg daily and amlodipine 10 mg daily as outpatient-continue
# Metastatic melanoma metastasis liver, lymph node, adrenal glands and bone
Originally diagnosed in 2021
Treated with toe amputation and adjuvant immunotherapy.
After 2 sessions of immunotherapy she was not tolerating it and decided to discontinue in 2022
She did not continue to follow-up and was not planning for chemotherapy or immunotherapy.
Lump noted on the head a few weeks ago hospice consulted by
Hematology oncology
I had a detailed discussion with patient and daughter whether to get an MRI of the brain or not. They will think about it and let me know.
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 Methocarbamol 5 mg 3 times daily
# Gout-on as needed prednisone
# GERD-continue PPI
# Glaucoma-continue timolol drops
# Microscopic hematuria
# Obesity per BMI-33
# Ex Smoker
# DVT prophylaxis--Lovenox
# DNR
Discussed with GI
Discussed with oncology
Discussed with daughter in detail at bedside
Total time spent over 50 minutes
Anticipated Discharge: Within 24 hours
Subjective/Interval History
-
Date of Service: November 15, 2024
Objective Data
-
Labs:
Laboratory Results
11/15/24
07:13
WBC 7.5
Hgb 10.8 L
Hct 32.4 L
Plt Count 143 D
Sodium 130 L
Potassium 3.9
Chloride 96 L
Carbon Dioxide 27
BUN 21 H
Creatinine 1.0
Glucose 95
Calcium 9.1
Total Bilirubin 1.5 H
AST 38 H
ALT 10
Alkaline Phosphatase 223 H
Vital Signs:
Vital Signs
Temp Pulse Resp BP Pulse Ox
99 F 71 22 126/54 93
11/15/24 07:50 11/15/24 07:50 11/15/24 07:50 11/15/24 07:50 11/15/24 07:50
[2024-11-15] MEDS: LOVENOX 40 MG SC (17:27)
[2024-11-16 07:05] VITALS: BP 135/61
[2024-11-16] MEDS: PROTONIX 40 MG PO (08:00)
[2024-11-16] MEDS: NORVASC 10 MG PO (08:00)
[2024-11-16] MEDS: TENORMIN 100 MG PO (08:00)
[2024-11-16] MEDS: NEURONTIN 300 MG PO (08:00)
[2024-11-16] MEDS: TIMOPTIC 0.25% OPHTHALMIC SOLUTION 1 DROP BOTH EYES (08:00)
[2024-11-16] MEDS: ROXICODONE 5 MG PO ×2 (08:06→14:29)
--- NOTE | 2024-11-16 08:26 | W.PN.UPDATE ---
Addendum entered and electronically signed by Nader Palomares MD 11/16/24 09:45:
Total time spent on d/c = 31 min. This included today's physical exam, progress note, review of laboratory and diagnostic data, preparation of discharge documents and prescriptions, and discussions about the pt's hospital course and discharge plan
with the patient and other medical office receptionist assistant involved in the patient's care.
Original Note:
Update Note
Progress Note Update
I saw and evaluated the patient. I reviewed the resident�s note and agree with findings and plan as documented in the resident�s note.
No new complaints. Pt asking to be discharged to hospice.
Gen: NAD, Awake and alert
Eyes: EOMI, PERRLA, no scleral icterus.
Neck: supple.
CV: RRR, +S1/S2, no m/r/g.
Resp: CTAB, no rales, wheezes, or rhonchi.
Abd: +BS, soft, NT, ND
Skin: No rashes.
Neuro: CN 2-12 intact, non-focal.
Psych: Normal mood and affect.
CT A/P 11/15/24: Metastatic disease involving the liver, adrenal glands, left pelvic and inguinal lymph nodes, retroperitoneal lymph nodes, and osseous metastatic lesions. Small right pleural effusion.
CT brain 11/15/24: Left parietal calvarial mass/metastasis measuring approximately 3 x 2.5 cm, with associated full-thickness bony destruction. The inner margin of the lesion results in secondary extrinsic compression of the superficial margin of the
left parietal lobe/posterior frontal lobe cortex. No midline shift. No acute intracranial hemorrhage. No extra-axial collection.
Acute metabolic encephalopathy:
-Possibly secondary brain metastasis from metastatic melanoma
-Mental status has returned to baseline as per the patient's daughter
-imaging above
-pt has opted for hospice
-was on decadron, now off
Hyponatremia:
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
-s/p Samsca
-cont FR
Other problems:
Elevated LFTs: likely secondary to metastases
Essential Hypertension: cont atenolol/amlodipine
Chronic pain, chronic opioid use with dependence: currently on oxycodone/Dilaudid PRN
Gout
GERD-continue PPI
Glaucoma-continue timolol drops
Obesity due to excess calories
DNR/Lovenox
Medically cleared for discharge to hospice. Case management aware.
--- NOTE | 2024-11-16 09:39 | HOSPNOTE ---
Spoke with patient and she is in agreement with hospice services. No equipment is needed and the daughter will be driving the patient home. Once the patient is home we will sign onto hospice services. Attending and CM aware. I left 2 messages for
the daughter to please call me.
--- NOTE | 2024-11-16 10:07 | W.PN.HOSP.TC ---
Today's Communication/Plan
-
Patient to discharge home on home hospice
Assessment / Plan
Assessment / Plan
Assessment:
84-year-old female with past medical history of metastatic melanoma status post resection 3 years ago, hypertension, gout, GERD presented to the ED from home for episode of confusion. Patient had become more confused and was acting out of normal.
In the ED she was alert and oriented and was answering questions Or appropriately. CT of the head and abdomen/pelvis were done which showed multiple metastasis. Patient and family elected to go home on home hospice.
11/15/2024-CT abdomen and pelvis with IVC--metastatic disease in the liver, adrenal glands, left pelvic and inguinal lymph nodes, retroperitoneal lymph nodes and osseous metastatic disease. Small pleural effusion
11/15/2024-Head CT-left parietal calvarial mass/metastasis 3 into 2.5 cm full-thickness bony destruction. Inner margin of the lesion results in secondary to extrinsic compression of the superficial margin of the left parietal lobe/posterior frontal
lobe cortex. No midline shift
Plan:
# Delirium/acute metabolic encephalopathy possibly secondary to brain metastasis
-Patient has history of metastatic melanoma
-Mental status has returned back to baseline as per her daughter
-Skull mets with erosion through the full-thickness of the inner and outer table of the skull with mild mass effect on the underlying parietal lobe and posterior frontal lobe
-Patient opted for home hospice
-Taken off of steroids
# Hyponatremia
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
-Continue fluid restriction
-Was given Samsca which improved sodium levels
# Acute kidney injury
-Creatinine normal
-Resolved
# Abnormal LFTs
-likely secondary to metastasis
# Hypertension
-continue atenolol and amlodipine
# Metastatic melanoma metastasis liver, lymph node, adrenal glands and bone
-Patient elected to go home on home hospice
# Chronic pain with narcotic dependence
-Continue pain medication at home
# Gout
-Continue as needed prednisone
# GERD
-continue PPI
# Glaucoma
-continue timolol drops
# Obesity per BMI-33
DVT prophylaxis-Lovenox
Code:DNR
Anticipated Discharge: Today
Subjective/Interval History
-
Date of Service: November 16, 2024
No new complaints overnight. Patient looking forward to going home on home hospice
Objective Data
-
Labs:
Laboratory Results
11/16/24
08:10
Sodium Pending
Potassium Pending
Chloride Pending
Carbon Dioxide Pending
BUN Pending
Creatinine Pending
Glucose Pending
Calcium Pending
Vital Signs:
Vital Signs
Temp Pulse Resp BP Pulse Ox
98.0 F 56 19 135/61 97
11/16/24 07:05 11/16/24 07:05 11/16/24 07:05 11/16/24 07:05 11/16/24 07:05
I&O
11/15/24 11/16/24 11/17/24
06:59 06:59 06:59
Intake Total 240 / 240
Balance 240 / 240
Review of Systems
-
History Source: Patient
Constitutional: Denies Fever, Night Sweats or Chills
EENT: Reports No Symptoms Reported
Respiratory: Denies Cough or Trouble Breathing
Cardiac: Denies Chest Pain, Palpitations or Syncope
Abdomen/GI: Denies Abdominal Pain, Nausea or Vomiting
Musculoskeletal: Reports No Symptoms
Skin: Reports No Symptoms
Endocrine: Reports No Symptoms
Physical Exam
-
General: No Apparent Distress, Comfortable and Conversant
HEENT: Normocephalic and Atraumatic
Respiratory: Clear to Auscultation and Non Labored Respirations
Cardiac: Regular Rhythm and S1/S2
GI: Soft, Nontender and Nondistended
Musculoskeletal: No Clubbing, No Cyanosis and No Edema
Skin: Warm and Dry
Neuro: Awake, Alert, Oriented and AO x 3
Psych: Calm
Data Reviewed
-
Labs: Labs Reviewed by me, Discussed with Physician, Discussed with Nurse and Discussed with Patient
[2024-11-16 10:28] LABS: Blood Urea Nitrogen 30 mg/dl (7-17); Calcium 9.3 mg/dl (8.4-10.2); Carbon Dioxide 29 mmol/L (22-30); Chloride 99 mmol/L (98-107); Estimated Creatinine Clearance 44 ml/min; Glucose 112 mg/dl (70-99); Potassium 3.8 mmol/L (3.5-5.1); Sodium 136 mmol/L (135-145); eGFR 50.17
--- NOTE | 2024-11-16 11:34 | W.DCSUMMARY ---
Discharge Summary
Discharge Data
Date of Admission: 11/15/24
Date of Discharge: 11/16/24
-
Pending Results: No
Hospital Course
Discharging Physician : Dr. Olga Spencer, Dr. Nader Palomares
�
Disposition�:�Home with hospice
�
Primary�care�physician�: PAULETTE ALMANZAR
�
Principal�Discharge�Diagnosis�:�
Acute metabolic encephalopathy
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
�
Chronic�Discharge�Diagnosis:�
Elevated LFTs
Hypertension
Metastatic melanoma with metastasis to the liver, lymph nodes, adrenal glands and bone
Chronic pain with narcotic dependence
Gout
GERD
Glaucoma
Obesity
�
Hospital�Course�:�
84-year-old female with past medical history of metastatic melanoma status post resection 3 years ago, hypertension, gout, GERD presented to the ED from home for episode of confusion on 11/14/2024. Patient had become more confused and was acting
out of normal at home. In the ED she was alert and oriented and was answering questions appropriately. CT of the head and abdomen/pelvis were done which showed multiple metastasis. Oncology was consulted along with GI. Patient was found to be
hyponatremic most likely secondary to paraneoplastic disease. Patient was given tolvaptan 7.5 to help bring up her sodium levels. Patient underwent fluid restriction as well as started on steroid therapy with dexamethasone. Patient was also found
to have elevated LFTs most likely due to her metastatic disease. MRI brain was considered however after many conversations regarding her condition, patient and family elected to go home on home hospice.
�
Important�imaging�findings�:��
11/15/2024-CT abdomen and pelvis with IVC--metastatic disease in the liver, adrenal glands, left pelvic and inguinal lymph nodes, retroperitoneal lymph nodes and osseous metastatic disease. Small pleural effusion
11/15/2024-Head CT-left parietal calvarial mass/metastasis 3 into 2.5 cm full-thickness bony destruction. Inner margin of the lesion results in secondary to extrinsic compression of the superficial margin of the left parietal lobe/posterior frontal
lobe cortex. No midline shift
�
Procedure�findings�:�None
�
Discharge Plan
-
Patient Disposition: Home with Hospice
Discharge Diagnosis/Procedures: Acute metabolic encephalopathy
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
Diet: No restrictions
Activity: As tolerated
Driving Restrictions: As prior to admission
Bathing Restrictions: None
Other Services: Hospice
Referrals:
UNKNOWN - PT DOES,NOT KNOW [Family Provider] -
Prescriptions:
Continued
methocarbamol 500 mg Tablet
500 mg PO TID PRN (Reason: muscle pains)
gabapentin 600 mg Tablet
600 mg PO TID
atenolol 100 mg Tablet
100 mg PO DAILY
ondansetron HCl 8 mg Tablet
8 mg PO Q8H PRN (Reason: nausea)
omeprazole 40 mg Capsule,Delayed Release(Dr/Ec)
40 mg PO DAILY
amlodipine 10 mg Tablet
10 mg PO DAILY
timolol 0.25 % Drops
1 drp OPHTHALMIC (EYE) BID
Rx Instructions:
Both eyes
fentanyl 25 mcg/hr Patch 72 Hour
25 mcg topical Q3D
oxycodone 5 mg Tablet
5 mg PO Q6H PRN (Reason: pain)
prednisone 10 mg Tablet
10 mg PO DAILY PRN (Reason: breakthrough pain for gout)
Discontinued
ergocalciferol (vitamin D2) 1,000 unit Capsule
50,000 unit PO WEEKLY
Discharge Orders:
Discharge Patient (As Directed); Ordered 11/16/24
Ordered By: Nader Palomares
Discharge Date and Time
Print Language: MACEDONIAN
--- NOTE | 2024-11-16 13:22 | CM ---
Addendum entered by Rose Bailon 11/16/24 13:31:
Plan: Discharge to home with Hospice; Daughter will transport home
Original Note:
Received a call from Constance, Nurse Advocate with [facility] #[phone]; she reported that she is following patient and requested discharge summary to assist with discharge planning
DC Summary faxed to # [phone]
--- NOTE | 2024-11-16 13:27 | W.PN.NEPH.PH ---
Today's Communication / Plan
-
Continue fluid restrict
Assessment/Plan
-
Assessment
Metastatic melanoma
Mental status change
Hyponatremia
Reflux
Hypertension
Plan
She has excess ADH state, likely on the basis of nausea with metastatic melanoma
Fluid restriction 40 ounces per day
Follow BMP
Discussed with patient and daughter
Sodium 136 today
No change made patient being discharged on hospice
-
-
Date of Service: November 16, 2024
CC / HPI / ROS
-
No chest pain or shortness of breath
Labs
-
Labs:
WBC 7.5 10^3/uL (4.8-10.8) 11/15/24 07:13
RBC 3.68 10^6/uL (4.20-5.40) L 11/15/24 07:13
Hgb 10.8 g/dL (12.0-16.0) L 11/15/24 07:13
Hct 32.4 % (37.0-47.0) L 11/15/24 07:13
Plt Count 143 10^3/uL (130-400) D 11/15/24 07:13
Sodium 136 mmol/L (135-145) 11/16/24 08:10
Potassium 3.8 mmol/L (3.5-5.1) 11/16/24 08:10
Chloride 99 mmol/L (98-107) 11/16/24 08:10
Carbon Dioxide 29 mmol/L (22-30) 11/16/24 08:10
BUN 30 mg/dl (7-17) H 11/16/24 08:10
Creatinine 1.1 mg/dL (0.6-1.0) H 11/16/24 08:10
eGFR 50.17 11/16/24 08:10
Glucose 112 mg/dl (70-99) H 11/16/24 08:10
Calcium 9.3 mg/dl (8.4-10.2) 11/16/24 08:10
Albumin 3.1 g/dl (3.5-5.0) L 11/15/24 07:13
Physical Exam
-
Vital Signs:
Vital Signs
Temp Pulse Resp BP Pulse Ox
98.0 F 56 19 135/61 97
11/16/24 07:05 11/16/24 07:05 11/16/24 07:05 11/16/24 07:05 11/16/24 07:05
Respiratory:: Bilateral: CTA
Lung Excursion:: Normal
Abdomen:: Soft
Bowel Sounds:: Normal
Extremity Edema:: +1: Bilateral:
[place] Catheter: No
[2024-11-16 15:05] VITALS: BP 124/61
== END 2024-11-16 15:00 | disposition hospice, home (50) | DRG 643 ==
LOC: 3 WEST ACU 03:16
PROVIDERS: Emergency Medicine; ADMITTING PHYSICIAN Internal Medicine; ATTENDING PHYSICIAN Internal Medicine; CONSULT PHYSICIAN Specialist; EMERGENCY PHYSICIAN Emergency Medicine; OTHER PHYSICIAN Internal Medicine Gastroenterology; OTHER PHYSICIAN Internal Medicine Hematology & Oncology
DX: E22.2 Syndrome of inappropriate secretion of antidiuretic hormone (principal); G93.41 Metabolic encephalopathy; C79.51 Secondary malignant neoplasm of bone; C79.70 Secondary malignant neoplasm of unspecified adrenal gland; C78.7 Secondary malignant neoplasm of liver and intrahepatic bile duct; F11.20 Opioid dependence, uncomplicated; R79.89 Other specified abnormal findings of blood chemistry; I10 Essential (primary) hypertension; Z66 Do not resuscitate; E66.9 Obesity, unspecified; Z68.33 Body mass index [BMI] 33.0-33.9, adult; Z85.820 Personal history of malignant melanoma of skin
CPT/HCPCS: 51701; 70450; 74177; 80048; 80053; 81003; 81015; 82248; 82607; 83935; 84300; 84443; 85025; 85027; 93005; 99285; Q9967